=== PATIENT | male | born 1930 | race Caucasian/White ===

== ENCOUNTER → 2016-11-19 | Outpatient (CLI) | payer MEDICARE, OTHER ==
--- NOTE | 2016-11-19 13:17 | RAD ---
EXAM DESCRIPTION: XR SHOULDER 2 OR MORE VIEWS CLINICAL HISTORY: 86 y/o ,M, PAIN IN RIGHT SHOULDER COMPARISON: None. IMPRESSION: Three views right shoulder. 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 No evidence of fracture on today's exam. Likely rotator cuff tear as a humeral head is high-riding within the glenoid. No evidence of dislocation. Electronically signed by: Cristobal Quintanilla MD 11/19/2016 13:15
== END ==
LOC: GMAL 12:49
PROVIDERS: ATTEND Family Medicine
DX: M25.511 Pain in right shoulder (principal); M12.811 Other specific arthropathies, not elsewhere classified, right shoulder

== ENCOUNTER → 2016-12-15 | Outpatient (CLI) | payer MEDICARE, OTHER | END | disposition home or self-care (01) | LOC: LAB.O 09:29 | PROVIDERS: ATTEND Internal Medicine Hematology & Oncology | DX: D61.818 Other pancytopenia (principal); D50.8 Other iron deficiency anemias; D51.8 Other vitamin B12 deficiency anemias ==

== ENCOUNTER 2017-03-02 10:55 | Emergency (ER) | payer MEDICARE, OTHER ==
[2017-03-02 11:12] VITALS: TEMP 98.6
--- NOTE | 2017-03-02 11:24 | ED.PDOC ---
History of Present Illness - General Chief Complaint: Respiratory Problem Stated Complaint: cough and congestion x 6 days Time Seen by Provider: 03/02/17 10:57 Source: patient, RN notes reviewed, Vital Signs reviewed, family Exam Limitations: no limitations - History of Present Illness Comments: Patient report productive cough, congestion and sinus congestion for 6 days. Fever to 102 @ home. No chest pain/back pain. Timing/Duration: week Cough Quality/Degree: productive cough, sputum - yellow Possible Cause: allergen exposure Improving Factors: nothing Worsening Factors: nothing Associated Symptoms: cough, facial pain, fever/chills, nasal congestion, sore throat Allergies/Adverse Reactions: Allergies NO KNOWN ALLERGY Allergy (Verified 12/22/12 12:38) Home Medications: Ambulatory Orders Allopurinol 1 tablet PO DAILY 12/02/12 Furosemide 1 tablet PO DAILY 12/02/12 Lisinopril 1 tablet PO DAILY 12/02/12 Potassium Chloride [Klor-Con 10] 1 tablet PO DAILY 12/02/12 Propranolol HCl [Inderal] 1 tablet PO BID 12/02/12 Azithromycin Tab [Zithromax] 250 mg PO QD #4 tab 03/02/17 Dutasteride-Tamsulosin HCl [Dutasteride/Tamsulosin Hc 0.5-0.4 mg] PO AC Review of Systems - Review of Systems Constitutional: States: chills, fever, malaise EENTM: States: nose congestion - with sinus congestion, throat pain Respiratory: States: see HPI, cough. Denies: orthopnea, short of breath Cardiology: States: no symptoms reported. Denies: chest pain Gastrointestinal/Abdominal: States: no symptoms reported Musculoskeletal: States: no symptoms reported Skin: States: no symptoms reported Neurological: States: no symptoms reported. Denies: headache Past Medical History (General) - Patient Medical History Hx Seizures: No Hx Stroke: No Hx Dementia: No Hx Asthma: No Hx of COPD: No Hx Cardiac Disorders: No Hx Congestive Heart Failure: Yes Hx Pacemaker: No Hx Hypertension: Yes Hx Thyroid Disease: No Hx Diabetes: No Hx Gastroesophageal Reflux: No Hx Renal Disease: No Hx Cancer: Yes Hx of HIV: No Hx Hepatitis C: No Hx MRSA: No - Vaccination History Hx Tetanus, Diphtheria Vaccination: Yes Hx Influenza Vaccination: Yes Hx Pneumococcal Vaccination: Yes Immunizations Up to Date: Yes - Social History Hx Tobacco Use: No Hx Chewing Tobacco Use: No Hx Alcohol Use: No Hx Substance Use: No Hx Substance Use Treatment: No Hx Depression: No Feels Threatened In Home Enviroment: No Feels Threatened In a Relationship: No Hx Physical Abuse: No Hx Emotional Abuse: No Hx Suspected Abuse: No - Female History Patient is a Female of Child Bearing Age (10 -59 yrs old): No Patient : No Family Medical History - Family History Mother Family History: Unknown Living Status: Physical Exam - Physical Exam General Appearance: Alert, Comfortable, No apparent distress, Well Developed, Well Groomed, Well Hydrated, Well Nourished Eye Exam: bilateral normal ENT Exam: hearing grossly normal, TMs normal, nasal congestion, pharyngeal erythema Neck: non-tender, full range of motion, supple, lymphadenopathy (R), lymphadenopathy (L) Respiratory: no respiratory distress, no accessory muscle use, decreased breath sounds - bilateral bases, crackles, rales - RLL Cardiovascular/Chest: regular rate, rhythm, no edema, no gallop, no JVD, no murmur Extremity: normal range of motion, non-tender, normal inspection, no pedal edema Neurologic: alert, normal mood/affect, oriented x 3 Skin Exam: normal color, warm/dry Comments: Vital Signs - 24 hr 03/02/17 03/02/17 11:08 11:12 Temperature 98.6 F Pulse Rate [ 76 Left Radial] Respiratory 20 20 Rate Blood Pressure 114/63 [Left Arm] O2 Sat by Pulse 96 Oximetry Progress - Results/Orders Results/Orders: Radiologist read CXR as normal but given symptoms and exam I am concerned for early pneumonia. Will go ahead and start antibiotics. Patient and are in agreement. - EKG/XRAY/CT XRAY: chest - No acute process per Radiologist CT Ordered: No CT Interpretation Call Back: No Departure - Departure Clinical Impression: Upper respiratory infection Qualifiers: URI type: unspecified URI Qualified Code(s): J06.9 - Acute upper respiratory infection, unspecified Time of Disposition: 12:03 Disposition: Discharge to Home or Self Care Condition: Good Departure Forms: ED Discharge - Pt. Copy, Patient Portal Self Enrollment Instructions: DI for Pneumonia -- Adult Diet: resume usual diet Activity: increase activity as tolerated Referrals: Milton Vega III, MD [Primary Care Provider] - 1-2 Weeks Prescriptions: Azithromycin Tab [Zithromax] 250 mg PO QD #4 tab Home Medications: Ambulatory Orders Allopurinol 1 tablet PO DAILY 12/02/12 Furosemide 1 tablet PO DAILY 12/02/12 Lisinopril 1 tablet PO DAILY 12/02/12 Potassium Chloride [Klor-Con 10] 1 tablet PO DAILY 12/02/12 Propranolol HCl [Inderal] 1 tablet PO BID 12/02/12 Azithromycin Tab [Zithromax] 250 mg PO QD #4 tab 03/02/17 Dutasteride-Tamsulosin HCl [Dutasteride/Tamsulosin Hc 0.5-0.4 mg] PO AC
--- NOTE | 2017-03-02 11:46 | RAD ---
EXAM DESCRIPTION: Chest,2 Views CLINICAL HISTORY: 86 years,Male,Cough fever COMPARISON: December 07, 2012 FINDINGS: There are no consolidations. No effusions. No pneumothoraces. No nodules. Bony elements unremarkable for age. IMPRESSION: Unremarkable chest for age stable Electronically signed by: Milton De León MD 03/02/2017 11:45 AM CDT
[2017-03-02] MEDS: AZITHROMYCIN 250 MG TAB PO ONE (12:09)
[2017-03-02 12:20] VITALS: BP 100/54; O2SAT 92
== END 2017-03-02 12:20 | disposition home or self-care (01) ==
LOC: ER 10:55
DX: J06.9 Acute upper respiratory infection, unspecified (principal); I11.0 Hypertensive heart disease with heart failure; I50.9 Heart failure, unspecified; Z85.9 Personal history of malignant neoplasm, unspecified; Z79.899 Other long term (current) drug therapy
CPT/HCPCS: 71020; Q0144

== ENCOUNTER → 2017-07-24 | Outpatient (CLI) | payer MEDICARE, OTHER | END | disposition home or self-care (01) | LOC: GMAL 10:03 | PROVIDERS: ATTEND Family Medicine | DX: Z12.5 Encounter for screening for malignant neoplasm of prostate (principal); E55.9 Vitamin D deficiency, unspecified | CPT/HCPCS: 82306; G0103 ==

== ENCOUNTER → 2017-12-18 | Outpatient (CLI) | payer MEDICARE, OTHER ==
--- NOTE | 2017-12-18 15:08 | RAD ---
EXAM DESCRIPTION: Hand,Right 3 Views CLINICAL HISTORY: 87 years Male, THUMB PAIN COMPARISON: CT scans of the head and neck on this visit. TECHNIQUE: AP lateral and oblique images right hand. FINDINGS: Overall bone density is decreased. Joint space narrowing IP's more DIP then PIP with some marginal spurs. Minimal deformities. Metacarpophalangeal joints also narrowed with marginal spurs especially middle and ring fingers. Soft tissue calcifications. Intercarpal joint space narrowing. No fractures. No dislocation. Possible soft tissue swelling of the thumb and index finger. 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 No acute bony abnormality. Electronically signed by: Darien Mckinney MD 12/18/2017 3:07 PM [employer]
--- NOTE | 2017-12-18 15:16 | CT ---
EXAM DESCRIPTION: Head: Computed Tomography. CLINICAL HISTORY: CERVICALGIA COMPARISON: CT scan cervical spine on this visit. Radiograph of the right hand. MRI brain without contrast 05/05/2014. TECHNIQUE: Non-helical axial scans through the skull and brain, at 5.0 mm intervals, non-contrast. Axial 2.5 mm reconstructions. Sagittal and coronal 2.0 mm reconstructions. Total Exam DLP: 859.97 mGy-cm. This exam was performed according to our departmental dose-optimization program which includes automated exposure control, adjustment of the mA and/or kV according to patient size and/or use of iterative reconstruction technique; to reduce radiation dose to as low as reasonably achievable (ALARA). FINDINGS: No hemorrhage, no mass-effect, and no midline shift. Minimal low-density in the periventricular white matter. Symmetric. No abnormal radiodense material in the brain parenchyma. Vascular calcifications anterior; physiologic calcifications in the pineal gland and choroid plexus. No effacement or displacement of the ventricles, CSF spaces, or subdural spaces. No extra axial fluid collection or hemorrhage. Physiologic configuration for the patient's age. No gross abnormalities of the bony calvarium. Pilar bullosa in the right middle turbinate. Minimal deviation of the septum to the left. Otherwise paranasal sinuses are unremarkable. IMPRESSION: 1. No hemorrhage, no mass effect, no midline shift. Age-related white matter changes are symmetric in the periventricular regions and also probably related to cerebral microvascular disease. 2. CT scans are insensitive for detecting small CVAs in the first 24 hours after onset. Evaluation of the brain stem is also limited. If symptoms persist, consider MRI scan of the brain with diffusion imaging. 3. Minimal paranasal sinus abnormalities. Please see details above. Electronically signed by: Darien Mckinney MD 12/18/2017 3:15 PM [facility]
--- NOTE | 2017-12-18 15:45 | CT ---
EXAM DESCRIPTION: Cervical Spine: Computed Tomography. CLINICAL HISTORY: CERVICALGIA COMPARISON: Radiograph of the hand and CT noncontrast head scan today. TECHNIQUE: Spiral, axial 2.5 mm scans through the cervical spine without contrast. Coronal and sagittal 2.0 mm Reconstructions. No adverse reactions. Total Exam DLP: 453.79 mGy-cm. This exam was performed according to our departmental dose-optimization program which includes automated exposure control, adjustment of the mA and/or kV according to patient size and/or use of iterative reconstruction technique; to reduce radiation dose to as low as reasonably achievable (ALARA). FINDINGS: Atlantoaxial joint is narrowed with sclerosis of the odontoid and the annular ligament posteriorly. Also multiple calcifications around the anterior atlas. Spondylosis and arthrosis of the bilateral atlantooccipital joints more on the left. Narrowing of the anterior canal at the C1 level. C2-3: Posterior disc spaces narrowed. Posterior disc bulging and calcification in the disc. Trace anterolisthesis. Right uncinate spur. Right neural foraminal stenosis and mild narrowing of the left neural foramen. Bilateral facet arthrosis. C3-4: Trace anterolisthesis. Minimal disc space loss and posterior disc bulge with calcification in the disc and posterior margin. Bilateral facet arthrosis. Mild right neural foraminal narrowing and uncinate spur. Uncinate spur on the left with neural foraminal stenosis. Moderate canal narrowing. C4-5: Minimal disc space loss. Calcification throughout the disc including the posterior bulging margin. Anterior disc bulge with endplate ridging. Bilateral uncinate spurs. Left facet arthrosis. Moderate right neural foraminal narrowing and mild left neural foraminal stenosis. C5-6: Moderate disc space loss with calcification of the disc. Minimal bilateral uncinate spurs. Mild right neural foraminal narrowing. Borderline left neural foraminal stenosis. Left facet arthrosis. C6-7: Decreased disc space and calcification of the disc diffusely. Anterior bridging osteophyte. Right neuroforamen patent. Mild narrowing on the left. Bilateral facet arthrosis. Mild canal narrowing. C7-T1: Posterior disc space loss anterior disc bulge and endplate ridging. Bilateral advanced facet arthrosis. Moderate right neural foraminal narrowing with left neural foraminal stenosis. Mild canal narrowing. T1-2: Disc space loss with anterior bulging and endplate ridging. Bilateral facet arthrosis. Right neural foraminal stenosis and mild to moderate left neural foraminal narrowing. Mild canal narrowing with posterior ligament calcification. Minimal levoscoliosis. No compression type vertebral body fractures. Bilateral arthrosis of the sternoclavicular joints. Bilateral arthrosis of the AC joints. Included lungs are unremarkable. Heterogeneous density in the thyroid gland. No soft tissue masses in the neck. Calcification of the interspinous ligaments posteriorly from C6 to T1. IMPRESSION: 1. Spondylosis at every level. Also facet arthrosis bilaterally are bilaterally at every level and canal and neural foraminal narrowing. 2. Arthrosis at the atlantoaxial joint with narrowing of the anterior canal. Arthrosis bilateral atlantooccipital joints. 3. C4-5 disc calcification and posterior bulge with mild left neural foraminal stenosis. 4. Trace anterolisthesis C3-4 with left neural foraminal stenosis. Disc calcification and posterior bulge. 5. Moderate disc space loss at C5-6. Borderline left neural foraminal stenosis. 6. Posterior C7-T1 disc space loss, left neural foraminal stenosis and bilateral advanced facet arthrosis. 7. Disc space loss at T1 to. No foraminal stenosis. Moderate canal narrowing with thickening of the posterior canal ligaments. Electronically signed by: Darien Mkcinney MD 12/18/2017 3:44 PM [facility]
== END ==
LOC: CT 14:17
PROVIDERS: ATTEND Nurse Practitioner Family
DX: M54.2 Cervicalgia (principal); M79.644 Pain in right finger(s); M85.9 Disorder of bone density and structure, unspecified; M47.9 Spondylosis, unspecified; M43.12 Spondylolisthesis, cervical region